=== PATIENT | female | born 1990 | race Caucasian/White ===

== ENCOUNTER 2016-12-11 19:18 | Emergency (ER) | payer MEDICAID, SELFPAY ==
[2016-12-11 20:00] LABS: Bilirubin Negative (Negative); Blood, Urine Trace (Negative); Clarity Clear (Clear); Glucose, Urine (Dipstick) Negative (Negative); Leukocyte Trace (Negative); Nitrite Negative (Negative); Protein, Urine (Dipstick) Negative (Neg-Trace); Urobilinogen 0.2 mg/dL (0.2-1.0)
[2016-12-11 20:05] LABS: Pregnancy Test - Urine (BHCG) Negative (NEGATIVE); Pregu Control Background? CLEAR/WHITE (CLR/WHITE); Pregu Control Bar Appear? YES (CONTROL BAR)
[2016-12-11 20:32] LABS: Wet Prep Trichomonas Trichomonas Absent (None Seen)
[2016-12-11 20:34] LABS: Wet Prep Clue Cells Clue Cells Absent (None Seen)
[2016-12-11 20:35] LABS: Wet Prep Spermatozoa 2nd Revie Agree with result (None Seen)
[2016-12-11 20:37] LABS: Bacteria/HPF Rare-Few HPF (None Seen); Squamous Epithelial 0-3 HPF (0-3); WBC/HPF 0-3 HPF (0-3)
[2016-12-11] MEDS ORDERED: Lidocaine 1% 20 ML MDV ONE (20:54)
[2016-12-11] MEDS ORDERED: cefTRIAXone\\ROCEPHIN 250 MG VIAL ONE (20:54)
[2016-12-11] MEDS ORDERED: Azithromycin 250 MG TAB ONE (20:54)
[2016-12-12 20:25] LABS: Chlamydia by PCR Not Detected (NotDetected); GC by PCR Not Detected (NotDetected)
== END 2016-12-11 21:20 | disposition home or self-care (01) ==
LOC: NAV ERS 19:18
DX: N76.0 Acute vaginitis (principal); F32.9 Major depressive disorder, single episode, unspecified; F17.210 Nicotine dependence, cigarettes, uncomplicated
CPT/HCPCS: 81003; 81015; 81025; 87210; 87491; 87591; 96372; J0696; J2001

== ENCOUNTER 2017-02-15 11:26 | Emergency (ER) | payer MEDICAID | END 2017-02-15 11:49 | disposition home or self-care (01) | LOC: NAV ERS 11:26 | DX: R22.0 Localized swelling, mass and lump, head (principal); H57.8 Other specified disorders of eye and adnexa; T49.8X5A Adverse effect of other topical agents, initial encounter; F17.210 Nicotine dependence, cigarettes, uncomplicated; F32.9 Major depressive disorder, single episode, unspecified; Z79.899 Other long term (current) drug therapy | CPT/HCPCS: 99284 ==

== ENCOUNTER 2018-01-28 17:30 | Emergency (ER) | payer MEDICAID, OTHER ==
[2018-01-28] MEDS ORDERED: Sodium Chloride 0.9% 1,000 ML ONE (17:49)
[2018-01-28 18:08] LABS: #Basophils 0.1 thou/uL (0.0-0.2); #Eosinphils 0.3 thou/uL (0.0-0.7); #Lymphocytes 3.6 thou/uL (1.20-3.40); #Monocytes 0.8 thou/uL (0.11-0.59); #Neutrophils 7.9 thou/uL (1.40-6.50); %Basophils 1.1 % (0.0-1.0); %Eosinophils 2.3 % (0.0-10.0); %Lymphocytes 27.9 % (21.0-51.0); %Monocytes 6.3 % (0.0-10.0); %Neutrophils 62.4 % (42.0-75.0); Hemoglobin 13.4 g/dL (12.0-16.0); Mean Corpuscular HGB CONC 32.2 g/dL (32.0-36.0); Mean Corpuscular Hemoglobin 30.9 pg (27.0-31.0); Mean Platelet Volume 9.9 fL (7.4-10.4); Platelet Count 228 thou/uL (130-400); RBC Distribution Width 11.4 % (11.5-14.5); Red Blood Cell (RBC) Count 4.34 mill/uL (4.20-5.40); White Blood Cell (WBC) Count 12.7 thou/uL (4.8-10.8)
[2018-01-28 18:30] LABS: Anion Gap 13 mmol/L (10-20); BUN (Urea Nitrogen) 15 mg/dL (7.0-18.7); Calc. Creatinine Clearance 0 mL/min (70-130); Calcium 9.9 mg/dL (7.8-10.44); Carbon Dioxide 26 mmol/L (22-29); Chloride 106 mmol/L (98-107); Estimated GFR-MDRD 79; Glucose 90 mg/dL (70-105); Potassium 4.2 mmol/L (3.5-5.1); Sodium 141 mmol/L (136-145)
== END 2018-01-28 19:21 | disposition short-term general hospital (02) ==
LOC: NAV ERS 17:30
DX: O20.9 Hemorrhage in early pregnancy, unspecified (principal); F32.9 Major depressive disorder, single episode, unspecified; O99.341 Other mental disorders complicating pregnancy, first trimester; Z3A.01 Less than 8 weeks gestation of pregnancy; Z87.891 Personal history of nicotine dependence
CPT/HCPCS: 80048; 84702; 85025; 86900; 86901; 96360; J7050

== ENCOUNTER 2024-05-28 14:38 | Emergency (ER) | payer OTHER, SELFPAY ==
[2024-05-28] MEDS ORDERED: Boostrix 0.5 ML (Tdap) VIAL (>/=7 yrs of age) ONE (14:56)
[2024-05-28] MEDS ORDERED: Ibuprofen 200 MG TAB ONE (14:58)
== END 2024-05-28 15:30 | disposition home or self-care (01) ==
LOC: NAV ERS 14:38
DX: S61.012A Laceration without foreign body of left thumb without damage to nail, initial encounter (principal); E11.9 Type 2 diabetes mellitus without complications; I10 Essential (primary) hypertension; Z87.891 Personal history of nicotine dependence; W29.8XXA Contact with other powered hand tools and household machinery, initial encounter
CPT/HCPCS: 12001; 90471; 90715